=== PATIENT | male | born 1985 | race Caucasian/White ===

== ENCOUNTER 2022-05-22 11:23 | Inpatient (IN) | payer SELFPAY ==
[2022-05-22] VITALS (9 sets, daily range): BP systolic 101–122; BP diastolic 52–67
[~2022-05-22] VITALS: Ht 175.3 cm; Wt 65.8 kg
[2022-05-22] MEDS ORDERED: LORAZEPAM 2 MG/1 ML VIAL ONE ×3 (11:27→20:35)
[2022-05-22] MEDS ORDERED: DEXTROSE 50% 50 ML DISP.SYRIN ONE (11:34)
[2022-05-22] MEDS ORDERED: NALOXONE 2 MG/2 ML SYRINGE ONE ×2 (11:39→17:33)
[2022-05-22] MEDS ORDERED: NALOXONE HCL 0.4 MG/ML AMPUL IV ONE ×2 (12:00→18:30)
[2022-05-22] MEDS ORDERED: IV NORMAL SALINE 500 ML BAG IV ONE (12:00)
[2022-05-22] MEDS ORDERED: LORAZEPAM 2 MG/1 ML VIAL IV ONE (12:00)
[2022-05-22 12:33] LABS: CARBON DIOXIDE 14 mmol/L (21-32); CHLORIDE 101 mmol/L (98-107); GLUCOSE 119 mg/dL (74-106); POTASSIUM 4.1 mmol/L (3.5-5.1); UREA NITROGEN, BLOOD 22 mg/dL (7-18)
[2022-05-22 12:34] LABS: ETHANOL 49 MG/DL (0-0); HEMATOCRIT 34.4 % (36.7-47.1); MEAN CORPUSCULAR HEMOGLOBIN 24.5 uug (23.8-33.4); MEAN CORPUSCULAR VOLUME 87.6 fL (73.0-96.2); PLATELET COUNT (AUTO) 270 K/uL (152-348)
[2022-05-22 12:42] LABS: ALANINE AMINOTRANSFERASE 206 U/L (16-63); ALKALINE PHOSPHATASE 220 U/L (50-136); ASPARTATE AMINOTRANSFERASE 414 U/L (15-37); BILIRUBIN,DIRECT 0.2 mg/dL (0.0-0.2); BILIRUBIN,TOTAL 0.4 mg/dL (0.2-1.0); TOTAL PROTEIN, SERUM 7.5 g/dL (6.4-8.2)
[2022-05-22 12:46] LABS: THYROID STIMULATING HORMONE 4.102 mIU/mL (0.358-3.740)
[2022-05-22 13:10] LABS: ACETAMINOPHEN < 2.0 ug/mL (10-30)
[2022-05-22 13:34] LABS: BAND % (MANUAL) 5 % (0-10); LYMPHOCYTES % (MANUAL) 11 % (20-40); MONOCYTES % (MANUAL) 3 % (2-10); NEUTROPHILS % (MANUAL) 81 % (42-75)
[2022-05-22] MEDS ORDERED: IV NS 1000 ML 1,000 ML IV ONE (14:00)
--- NOTE | 2022-05-22 16:50 | NUR ---
Handsoff report given to CUSTOM DECORATING CONSULTANT Ashutosh Galvez.
--- NOTE | 2022-05-22 16:57 | NUR ---
Pt just transferred to ICU (ER room 1). Pt makes a snorting/choking sound and then moans with about every breath. Resp Rate is falling, now down to about 7/min.
[2022-05-22 16:59] LABS: *BILIRUBIN,URIN NEGATIVE (NEGATIVE); *BLOOD, URINE 3+ (NEGATIVE); *CLARITY,URINE CLEAR (CLEAR); *COLOR,URINE YELLOW (YELLOW); *KETONES,URINE NEGATIVE (NEGATIVE); *UROBILINOGEN,URINE 0.2 E.U./dl (NORMAL); LEUKOCYTE ESTERASE ,URINE NEGATIVE (NEGATIVE); NITRITE, URINE NEGATIVE (NEGATIVE); PH,URINE 5.5 (5.0-8.0); UGLUCOSE NEGATIVE (NEGATIVE)
[2022-05-22] MEDS ORDERED: ONDANSETRON 4 MG/2 ML VIAL IV PRN (17:00)
[2022-05-22] MEDS ORDERED: REMEDY ESSENTIAL ZINC PASTE 113 GM TP PRN (17:00)
[2022-05-22] MEDS ORDERED: LORAZEPAM 2 MG/1 ML VIAL IV PRN (17:00)
[2022-05-22] MEDS ORDERED: ACETAMINOPHEN 650 MG SUPP.RECT RC PRN (17:00)
[2022-05-22 17:13] LABS: MetHb 0.5 % (0.0-1.5)
[2022-05-22 17:15] LABS: *AMPHETAMINE, URINE POSITIVE (NEGATIVE); *CANNABINOID, URINE POSITIVE (NEGATIVE); *COCCAINE, URINE NEGATIVE (NEGATIVE); *OPIATE, URINE NEGATIVE (NEGATIVE); *PHENCYCLIDINE SCREEN,URINE NEGATIVE (NEGATIVE)
[2022-05-22 17:16] LABS: BACTERIA,URINE FEW /HPF (NONE SEEN); SQUAMOUS EPITHELIAL CELL,UR FEW /HPF (NONE SEEN); WBC,URINE NONE SEEN /HPF (0-3)
[2022-05-22 17:17] LABS: URINE AMORPHOUS URATE MODERATE /HPF
[2022-05-22] MEDS ORDERED: PIPERACILLIN/TAZOBACTAM/D5W 50 ML IV ONE (17:20)
[2022-05-22 17:27] LABS: CREATININE 2.4 mg/dL (0.6-1.3); POTASSIUM 5.6 mmol/L (3.5-5.1)
[2022-05-22] MEDS: IV LACTATED RINGERS SOLUTION 1,000 ML IV PRN ×2 (17:49→20:25)
[2022-05-22] MEDS ORDERED: KETAMINE HCL 500 MG/10 ML INJ ONE (17:57)
[2022-05-22] MEDS ORDERED: NOREPINEPHRINE BITARTRATE 8 MG in IV NORMAL SALINE 242 ML IV PRN (18:00)
[2022-05-22] MEDS ORDERED: KETAMINE HCL 500 MG/10 ML INJ IV ONE (18:00)
[2022-05-22] MEDS: NALOXONE HCL 4 MG in IV NORMAL SALINE 246 ML IV PRN (18:10)
[2022-05-22] MEDS: levETIRAcetam IV 500 MG in IV DEXTROSE 5% 100 ML IV SCH (18:20)
[2022-05-22] MEDS: PIPERACILLIN SODIUM/TAZOBACTAM 3.375 G in IV DEXTROSE 5% 100 ML IV SCH (19:00)
[2022-05-22 19:08] LABS: ABG BASE EXCESS -7.8 mmol/L; ABG HCO3 19.2 mmol/L; ABG PCO2 45.3 mmHg (35.0-45.0); ABG PH 7.244 (7.350-7.450); ABG PO2 60.1 mmHg (75.0-100.0); ABG SITE LEFT RADIAL; ABG TOTAL HEMOGLOBIN 10.4 G/dL (13.5-18.0); COHb 0.3 % (0.5-1.5); O2Hb 87.8 % (94.0-97.0); VENT MODE BIPAP
[2022-05-22] MEDS: LORAZEPAM 2 MG/1 ML VIAL IV SCH (20:30)
[2022-05-22] MEDS ORDERED: PIPERACILLIN SODIUM/TAZOBACTAM 3.375 G in IV DEXTROSE 5% 50 ML IV SCH (22:00)
[2022-05-23] VITALS (21 sets, daily range): BP systolic 99–146; BP diastolic 58–95
[2022-05-23] MEDS ORDERED: NALOXONE 2 MG/2 ML SYRINGE ONE (00:49)
[2022-05-23] MEDS ORDERED: HEPARIN SODIUM,PORCINE 5,000 UNITS/ML VIAL IV SCH (01:30)
[2022-05-23] MEDS ORDERED: HEPARIN/D5W 25000 UNITS/500 ML BAG IV ONE (01:30)
[2022-05-23] MEDS ORDERED: HEPARIN/D5W DRIP 500 ML ONE (01:32)
[2022-05-23] MEDS ORDERED: HEPARIN SODIUM,PORCINE 5,000 UNITS/ML VIAL ONE (01:32)
[2022-05-23] MEDS: LORAZEPAM 2 MG/1 ML VIAL IV SCH ×2 (02:00→06:00)
[2022-05-23] MEDS ORDERED: LORAZEPAM 2 MG/1 ML VIAL ONE ×5 (02:28→20:40)
[2022-05-23] MEDS ORDERED: PIPERACILLIN/TAZOBACTAM/D5W 50 ML IV ONE (02:37)
[2022-05-23] MEDS: PIPERACILLIN SODIUM/TAZOBACTAM 3.375 G in IV DEXTROSE 5% 100 ML IV SCH ×3 (02:46→17:36)
[2022-05-23] MEDS: NALOXONE HCL 4 MG in IV NORMAL SALINE 246 ML IV PRN ×2 (02:49→08:21)
[2022-05-23 05:03] LABS: HEMATOCRIT 29.3 % (36.7-47.1); MEAN CORPUSCULAR HEMOGLOBIN 25.3 uug (23.8-33.4); MEAN CORPUSCULAR VOLUME 80.1 fL (73.0-96.2); PLATELET COUNT (AUTO) 199 K/uL (152-348)
[2022-05-23 05:30] LABS: BILIRUBIN,TOTAL 0.7 mg/dL (0.2-1.0); CREATININE 2.6 mg/dL (0.6-1.3); MAGNESIUM 1.4 mg/dL (1.8-2.4); PHOSPHOROUS 5.5 mg/dL (2.5-4.9); POTASSIUM 3.9 mmol/L (3.5-5.1); THYROID STIMULATING HORMONE 0.379 mIU/mL (0.358-3.740); TOTAL PROTEIN, SERUM 6.2 g/dL (6.4-8.2)
[2022-05-23] MEDS: levETIRAcetam IV 500 MG in IV DEXTROSE 5% 100 ML IV SCH ×2 (06:00→17:08)
[2022-05-23 06:05] LABS: ABG BASE EXCESS -5.4 mmol/L; ABG HCO3 19.2 mmol/L; ABG PCO2 33.9 mmHg (35.0-45.0); ABG PO2 58.9 mmHg (75.0-100.0); ABG SITE RIGHT RADIAL; ABG TOTAL HEMOGLOBIN 10.1 G/dL (13.5-18.0); MetHb 0.1 % (0.0-1.5); O2Hb 89.8 % (94.0-97.0); VENT MODE room air
--- NOTE | 2022-05-23 07:15 | NUR ---
Received pt. restless combative agitated and on 4 point hard restrains on. On sinus tachycardia. IV line out and patient wet with blood all over the mahsa. Iv line leaking on the floor. IV G20 To RUE also leaking. IV pumps with alarms on. Diaper and patient wet from head to toe. Patient got situated in bed morning care provided and Iv line reinserted. Patient remains combative will continue to monitor.
--- NOTE | 2022-05-23 08:00 | NUR ---
Embedder in the unit and after examining pt. orders to stop heparing drip received.
[2022-05-23] MEDS: PANTOPRAZOLE SODIUM 40 MG VIAL IV SCH (09:00)
[2022-05-23] MEDS: MAGNESIUM SULFATE/D5W 100 ML IV SCH ×2 (09:30→13:44)
[2022-05-23] MEDS ORDERED: PANTOPRAZOLE SODIUM 40 MG VIAL ONE (10:23)
[2022-05-23] MEDS ORDERED: MAGNESIUM SULFATE/D5W 200 ML ONE (10:24)
[2022-05-23] MEDS ORDERED: CHLORDIAZEPOXIDE HCL 25 MG CAPSULE PO ONE (11:00)
[2022-05-23] MEDS ORDERED: CHLORDIAZEPOXIDE HCL 25 MG CAPSULE ONE ×2 (11:07→18:50)
[2022-05-23] MEDS ORDERED: HALOPERIDOL LACTATE 5 MG/1 ML VIAL IM ONE (11:15)
--- NOTE | 2022-05-23 11:15 | NUR ---
Patient remains severely restless and agitated and removed his 4th IV insertion. Attending notified that pt. now is with no IV access. and able to drink and swallow pills received his first dose of librium and remains restless agitated requesting to have a bear. Orders for 1:1 received when attending personally assess and witness pt. being combative and agitated.
[2022-05-23] MEDS ORDERED: HALOPERIDOL LACTATE 5 MG/1 ML VIAL ONE ×2 (11:22→20:40)
[2022-05-23] MEDS: CHLORDIAZEPOXIDE HCL 25 MG CAPSULE PO SCH ×2 (13:00→17:00)
[2022-05-23] MEDS: FERROUS SULFATE 325 MG TABEC PO SCH ×2 (13:00→21:00)
--- NOTE | 2022-05-23 13:00 | NUR ---
Attending Ernie Mike in the unit and inserted a ML. Patient remains restless agitated.
[2022-05-23] MEDS ORDERED: diphenhydrAMINE 50 MG/1 ML VIAL ONE (13:04)
[2022-05-23] MEDS ORDERED: diphenhydrAMINE 50 MG/1 ML VIAL IV PRN (13:15)
[2022-05-23] MEDS: IV LACTATED RINGERS SOLUTION 1,000 ML IV PRN (13:41)
--- NOTE | 2022-05-23 17:44 | NUR ---
Librium not administered pt. remains sleeping.
--- NOTE | 2022-05-23 17:53 | NUR ---
Left pt. sleeping comfortably saturation of 98%. NC on 4 liters with saturation of 98%. patient on diaper. On pvc monitor HR of 103 sinus tachycardia. sbp within desired limits. Addendum: 05/23/22 at 1757 by VIDHI COTA RN ML to FAYE wrapped with coban.
--- NOTE | 2022-05-23 18:19 | NUR ---
Left patient resting sound sleeping, on school bus monitor Sinus tachycardia low 100's SBP within desired limits. ML to FAYE patent. diaper on. Will endorse for continuity of care.
[2022-05-23] MEDS: LORAZEPAM 2 MG/1 ML VIAL IV PRN (18:52)
[2022-05-23] MEDS: HALOPERIDOL LACTATE 5 MG/1 ML VIAL IM PRN (20:53)
[2022-05-24] VITALS (19 sets, daily range): BP systolic 101–151; BP diastolic 67–116
[2022-05-24] MEDS ORDERED: LORAZEPAM 2 MG/1 ML VIAL ONE ×3 (00:32→19:22)
[2022-05-24] MEDS: PIPERACILLIN SODIUM/TAZOBACTAM 3.375 G in IV DEXTROSE 5% 100 ML IV SCH ×3 (02:22→17:38)
[2022-05-24 05:13] LABS: HEMATOCRIT 29.3 % (36.7-47.1); MEAN CORPUSCULAR VOLUME 79.6 fL (73.0-96.2); PLATELET COUNT (AUTO) 198 K/uL (152-348)
[2022-05-24 05:29] LABS: BILIRUBIN,DIRECT 0.3 mg/dL (0.0-0.2); BILIRUBIN,TOTAL 0.7 mg/dL (0.2-1.0); CREATININE 2.4 mg/dL (0.6-1.3); MAGNESIUM 2.1 mg/dL (1.8-2.4); PHOSPHOROUS 2.5 mg/dL (2.5-4.9); POTASSIUM 4.2 mmol/L (3.5-5.1); TOTAL PROTEIN, SERUM 6.7 g/dL (6.4-8.2)
[2022-05-24] MEDS: levETIRAcetam IV 500 MG in IV DEXTROSE 5% 100 ML IV SCH ×2 (06:03→17:38)
[2022-05-24] MEDS ORDERED: HALOPERIDOL LACTATE 5 MG/1 ML VIAL ONE ×3 (06:06→19:54)
[2022-05-24 06:28] LABS: ABG BASE EXCESS -2.3 mmol/L; ABG HCO3 22.2 mmol/L; ABG PCO2 36.9 mmHg (35.0-45.0); ABG PH 7.397 (7.350-7.450); ABG PO2 56.7 mmHg (75.0-100.0); ABG SITE LEFT RADIAL; ABG TOTAL HEMOGLOBIN 9.9 G/dL (13.5-18.0); COHb 0.2 % (0.5-1.5); MetHb 0.3 % (0.0-1.5); O2Hb 88.4 % (94.0-97.0); VENT MODE room air
[2022-05-24] MEDS: HALOPERIDOL LACTATE 5 MG/1 ML VIAL IM PRN ×2 (07:02→20:05)
[2022-05-24] MEDS: LORAZEPAM 2 MG/1 ML VIAL IV PRN ×2 (07:09→19:23)
--- NOTE | 2022-05-24 07:15 | NUR ---
Received pt. sleeping intermittently, when awake pt. combative attempting to get out of bed unsupervised. On cardiac monitoring ST low 100's. Nasal canula 4liters. will continue to monitor.
--- NOTE | 2022-05-24 08:00 | NUR ---
Dr. Payton in the unit to follow up on pt. report given orders to continue with care plan received.
[2022-05-24] MEDS ORDERED: CHLORDIAZEPOXIDE HCL 25 MG CAPSULE ONE ×3 (08:09→16:18)
[2022-05-24] MEDS ORDERED: PANTOPRAZOLE SODIUM 40 MG VIAL ONE (08:09)
[2022-05-24] MEDS: PANTOPRAZOLE SODIUM 40 MG VIAL IV SCH (08:19)
[2022-05-24] MEDS: FERROUS SULFATE 325 MG TABEC PO SCH (08:22)
--- NOTE | 2022-05-24 08:30 | NUR ---
Cardiology services, Dr. Hess in the unit to see and examine pt.
[2022-05-24] MEDS: CHLORDIAZEPOXIDE HCL 25 MG CAPSULE PO SCH ×3 (09:50→16:24)
--- NOTE | 2022-05-24 17:02 | NUR ---
certified pharmacy tech in the unit and patient was uncooperative restless agitated and procedure was suspended. pt. not following commands.
[2022-05-24] MEDS ORDERED: HALOPERIDOL LACTATE 5 MG/1 ML VIAL IV ONE (17:15)
--- NOTE | 2022-05-24 18:50 | NUR ---
Attending physician Dr. Ronald Walter in the unit to see and examine pt. report given orders to received. and implemented.
[2022-05-24] MEDS ORDERED: LEVALBUTEROL HCL NEB 0.63 MG/3 ML NEBU NEB PRN (19:15)
[2022-05-24] MEDS ORDERED: ALBUTEROL SULFATE 2.5 MG/3 ML NEBU NEB PRN (19:15)
[2022-05-24] MEDS ORDERED: LORAZEPAM 2 MG/1 ML VIAL IV PRN (19:15)
[2022-05-24] MEDS ORDERED: diphenhydrAMINE 50 MG/1 ML VIAL ONE (20:21)
[2022-05-24] MEDS: HALOPERIDOL LACTATE 5 MG/1 ML VIAL IM ONE (20:30)
[2022-05-24] MEDS ORDERED: diphenhydrAMINE 50 MG/1 ML VIAL IV ONE (20:30)
--- NOTE | 2022-05-24 20:30 | NUR ---
Patient remains combative, restless, agitated getting out of bed unsupervised unsteady gait. Attending notified and orders received and implemented.
[2022-05-25 00:09] VITALS: BP 143/99
[2022-05-25] MEDS: PIPERACILLIN SODIUM/TAZOBACTAM 3.375 G in IV DEXTROSE 5% 100 ML IV SCH ×3 (02:50→17:17)
[2022-05-25 04:00] VITALS: BP 132/75
[2022-05-25] MEDS ORDERED: HALOPERIDOL LACTATE 5 MG/1 ML VIAL ONE (04:44)
[2022-05-25] MEDS: levETIRAcetam IV 500 MG in IV DEXTROSE 5% 100 ML IV SCH ×2 (05:06→17:17)
--- NOTE | 2022-05-25 06:33 | NUR ---
Telephone report will be given to incoming shift. Patient restless agitated combative intermittently. ON NSR ST when agitated in the low 10's. Afebrile for the shift. RUM with about 1 inch back. MARY G18 patent. Patient using diaper and at this time patient placed on mittens for protection 1:1 sitter at bedside.
[2022-05-25] MEDS: PANTOPRAZOLE SODIUM 40 MG TABLET.DR PO SCH (07:00)
[2022-05-25 08:27] LABS: HEMATOCRIT 26.7 % (36.7-47.1); MEAN CORPUSCULAR HEMOGLOBIN 25.2 uug (23.8-33.4); MEAN CORPUSCULAR VOLUME 77.9 fL (73.0-96.2); PLATELET COUNT (AUTO) 207 K/uL (152-348)
[2022-05-25] MEDS: HALOPERIDOL LACTATE 5 MG/1 ML VIAL IM PRN ×2 (08:35→15:10)
[2022-05-25 08:51] LABS: CREATININE 1.6 mg/dL (0.6-1.3); MAGNESIUM 1.8 mg/dL (1.8-2.4); PHOSPHOROUS 2.1 mg/dL (2.5-4.9); POTASSIUM 3.2 mmol/L (3.5-5.1)
[2022-05-25] MEDS: LORAZEPAM 2 MG/1 ML VIAL IV PRN ×2 (09:31→20:55)
[2022-05-25] MEDS ORDERED: POTASSIUM PHOSPHATE MM 15 MMOL in IV NORMAL SALINE 250 ML IV ONE (11:00)
[2022-05-25 12:00] VITALS: BP 137/81
--- NOTE | 2022-05-25 15:14 | NUR ---
SW consult was requested for a patient on medsurg for homeless and substance abuse resources. Patient is a 36-year-old male admitted to the hospital for an overdose of amphetamines. The toxicology report is positive for amphetamines and cannabinoids. Patient appears disoriented and lethargic. Patient was unable to answer assessment questions. SW attempted to give the patient homeless resources to local shelters for [facility] [place] [address] [place] [address] ([phone]), [facility] [place] [facility] [address] [facility] [address] ([phone]) and [facility] [address] [facility] [address] and substance abuse resources for [facility] [address] [facility] [address] ([phone]), [facility] [address] [facility] [address] ([phone]), and [facility] [address] [facility] [address] ([phone]). SW will follow up with patient tomorrow.
[2022-05-25 16:00] VITALS: BP 154/86
--- NOTE | 2022-05-25 18:23 | NUR ---
Patient showing signs of agitation and aggressiveness during shift, relieved with medicinal interventions. Patient 1:[address] HEAD SULFIDE OPERATOR at patient's bedside. IV site patent and intact. Bed left in lowest position with call light within reach. Will endorse information to PM nurse.
[2022-05-25 20:00] VITALS: BP 162/96
[2022-05-26] VITALS: BP 156/90
[2022-05-26] MEDS: PIPERACILLIN SODIUM/TAZOBACTAM 3.375 G in IV DEXTROSE 5% 100 ML IV SCH ×3 (02:21→17:28)
[2022-05-26 04:00] VITALS: BP 164/92
[2022-05-26] MEDS: levETIRAcetam IV 500 MG in IV DEXTROSE 5% 100 ML IV SCH (05:13)
[2022-05-26] MEDS: PANTOPRAZOLE SODIUM 40 MG TABLET.DR PO SCH (05:13)
[2022-05-26] MEDS: LORAZEPAM 2 MG/1 ML VIAL IV PRN ×4 (05:35→23:21)
[2022-05-26] MEDS: HALOPERIDOL LACTATE 5 MG/1 ML VIAL IM PRN ×3 (07:43→18:30)
[2022-05-26 08:56] LABS: HEMATOCRIT 28.8 % (36.7-47.1); MEAN CORPUSCULAR VOLUME 78.7 fL (73.0-96.2); PLATELET COUNT (AUTO) 269 K/uL (152-348)
[2022-05-26 09:17] LABS: BILIRUBIN,TOTAL 0.7 mg/dL (0.2-1.0); CREATININE 1.6 mg/dL (0.6-1.3); MAGNESIUM 1.4 mg/dL (1.8-2.4); PHOSPHOROUS 3.5 mg/dL (2.5-4.9); POTASSIUM 3.3 mmol/L (3.5-5.1); TOTAL PROTEIN, SERUM 6.8 g/dL (6.4-8.2)
--- NOTE | 2022-05-26 15:30 | NUR ---
SW consult was requested to follow up with patient on medsur for homeless and substance abuse resources. Patient is a 36-year-old male admitted to the hospital for an overdose of amphetamines. The toxicology report is positive for amphetamines and cannabinoids. Patient continues to appear disoriented and lethargic. Patient still is unable to answer assessment questions. SW gave the patient homeless resources to local shelters for [facility] [place] [address] [place] [address] ([phone]), [facility] [place] [facility] [address] [facility] [address] ([phone]) and [facility] [address] [facility] [address] and substance abuse resources for [facility] [address] [facility] [address] ([phone]), [facility] [address] [facility] [address] ([phone]), and [facility] [address] [facility] [address] ([phone]). SW will continue to follow up with patient.
[2022-05-26 16:26] VITALS: BP 158/79
[2022-05-26] MEDS: levETIRAcetam 500 MG TABLET PO SCH (17:20)
--- NOTE | 2022-05-26 18:30 | NUR ---
Patient agitated majority of shift until new doctor orders. Haldol given IM twice during shift to help prevent escalation of patient's aggression and hostility. Patient 1:1 tolerating meals and fluids during shift. IV site patent and intact. Bed left in lowest position with call light within reach. Comfort measures provided. Will endorse information to PM nurse.
--- NOTE | 2022-05-26 19:30 | NUR ---
Received patient lying in bed. AAOx2-3 with periods of confusion. In no apparent distress. No signs or symptoms of pain or SOB. [address] for safety[address] Circulation checked on all extremities. Midline on right upper arm intact and patent. 1:1 sitter on site. Needs assessed and attended to. Continue to monitor.
[2022-05-26 21:17] VITALS: BP 144/87
[2022-05-27] MEDS: HALOPERIDOL LACTATE 5 MG/1 ML VIAL IM PRN ×3 (01:12→22:31)
[2022-05-27] MEDS: PIPERACILLIN SODIUM/TAZOBACTAM 3.375 G in IV DEXTROSE 5% 100 ML IV SCH ×3 (01:12→17:05)
[2022-05-27 05:31] VITALS: BP 105/55
[2022-05-27] MEDS: LORAZEPAM 2 MG/1 ML VIAL IV PRN ×2 (05:31→12:11)
[2022-05-27] MEDS: PANTOPRAZOLE SODIUM 40 MG TABLET.DR PO SCH (06:01)
[2022-05-27] MEDS: levETIRAcetam 500 MG TABLET PO SCH ×2 (06:01→17:05)
[2022-05-27 06:55] LABS: HEMATOCRIT 30.4 % (36.7-47.1); MEAN CORPUSCULAR HEMOGLOBIN 25.1 uug (23.8-33.4); MEAN CORPUSCULAR VOLUME 77.4 fL (73.0-96.2); PLATELET COUNT (AUTO) 320 K/uL (152-348)
[2022-05-27 07:09] LABS: CREATININE 1.5 mg/dL (0.6-1.3); MAGNESIUM 1.5 mg/dL (1.8-2.4); PHOSPHOROUS 4.2 mg/dL (2.5-4.9); POTASSIUM 3.6 mmol/L (3.5-5.1)
[2022-05-27] MEDS ORDERED: ALBUTEROL SULFATE 1.25 MG/3 ML NEBU NEB PRN (07:15)
[2022-05-27 07:37] LABS: BAND % (MANUAL) 1 % (0-10); EOSINOPHILS % (MANUAL) 4 % (0-8); LYMPHOCYTES % (MANUAL) 25 % (20-40); MONOCYTES % (MANUAL) 17 % (2-10); NEUTROPHILS % (MANUAL) 53 % (42-75)
[2022-05-27] MEDS ORDERED: MAGNESIUM SULFATE/D5W 100 ML IV SCH ×2 (08:00→08:30)
[2022-05-27] MEDS: CHLORDIAZEPOXIDE HCL 25 MG CAPSULE PO SCH ×3 (14:08→21:39)
--- NOTE | 2022-05-27 18:39 | NUR ---
Psyche consultation completed for patient, with new orders for medication given. Patient still noncompliant and rude towards staff. IV site patent and intact. Bed left in lowest position with call light within reach. Will endorse information to PM nurse.
--- NOTE | 2022-05-27 19:20 | NUR ---
Patient in bed awake but still confused, no sob no chest pain, on soft wrist restraints due to pulling out iv lines, medical lines, patient tries to get out of bed, risk for fall and injury. on 1;1 sitter for safety, patient has multiple episode of agitation, climbs out of bed, cont to monitor.
[2022-05-27 20:00] VITALS: BP 144/94
--- NOTE | 2022-05-27 22:30 | NUR ---
Patient pulled out his midline, will try to insert peripheral one.
[2022-05-28] VITALS: BP_SYST 118; BP_SYST 129; BP_DIAS 72; BP_DIAS 78
--- NOTE | 2022-05-28 00:04 | NUR ---
Patient inserted iv line on left upper arms, tolerate well, cont on 1;1 sitter for safety, cont to monitor.
[2022-05-28] MEDS: PIPERACILLIN SODIUM/TAZOBACTAM 3.375 G in IV DEXTROSE 5% 100 ML IV SCH ×2 (01:36→09:43)
[2022-05-28] MEDS: PANTOPRAZOLE SODIUM 40 MG TABLET.DR PO SCH (05:48)
[2022-05-28] MEDS: levETIRAcetam 500 MG TABLET PO SCH ×2 (05:48→18:16)
[2022-05-28 06:50] VITALS: BP 138/68
--- NOTE | 2022-05-28 06:55 | NUR ---
Patient awake able to make some needs know, episode of tries to climb out of bed, risk for fall and injury, cont to have 1;1 sitter for safety, patient unstead and risk for fall and injury. Given prn earlier on the shift with some help cont to monitor.
[2022-05-28 07:33] LABS: HEMATOCRIT 31.8 % (36.7-47.1); MEAN CORPUSCULAR VOLUME 77.8 fL (73.0-96.2); PLATELET COUNT (AUTO) 368 K/uL (152-348)
[2022-05-28 07:42] LABS: NEUTROPHILS % (MANUAL) 0 % (42-75)
[2022-05-28 07:44] LABS: BILIRUBIN,DIRECT 0.1 mg/dL (0.0-0.2); BILIRUBIN,TOTAL 0.5 mg/dL (0.2-1.0); CREATININE 1.5 mg/dL (0.6-1.3); MAGNESIUM 1.7 mg/dL (1.8-2.4); PHOSPHOROUS 4.6 mg/dL (2.5-4.9); POTASSIUM 3.8 mmol/L (3.5-5.1); TOTAL PROTEIN, SERUM 7.2 g/dL (6.4-8.2)
[2022-05-28] MEDS ORDERED: MAGNESIUM SULFATE/D5W 100 ML IV SCH (09:15)
[2022-05-28] MEDS: CHLORDIAZEPOXIDE HCL 25 MG CAPSULE PO SCH ×4 (09:40→20:00)
[2022-05-28] MEDS ORDERED: MAGNESIUM OXIDE 400 MG TABLET PO ONE (10:00)
--- NOTE | 2022-05-28 12:00 | NUR ---
pt non-compliance. aggressive and agitated. want to get out. pull out his iv access. md notified.
[2022-05-28] MEDS: ACETAMINOPHEN 325 MG TABLET PO PRN (19:57)
[2022-05-28] MEDS: HALOPERIDOL LACTATE 5 MG/1 ML VIAL IM PRN (22:32)
--- NOTE | 2022-05-28 22:59 | NUR ---
Patient sleep intermittently, on 1;1 sitter for safety, multiple episode of anxiety mb restlessnes/agitation. Patient restless in bed, likes to sleep on the floor, states that there something on his bed, unclear what patient meant. Patient hand mittents and soft wrist restraint are off because its helps patient to calm down. Patient asked for medication to calm him, given Haldol IM as ordered. Patient asked for pudding and crackers, offered cold water to drink assist to the toilet for bladder eliminations. cont to monitor.
[2022-05-29] MEDS: PANTOPRAZOLE SODIUM 40 MG TABLET.DR PO SCH (05:48)
[2022-05-29] MEDS: levETIRAcetam 500 MG TABLET PO SCH (05:48)
[2022-05-29 07:30] VITALS: BP 109/70
[2022-05-29 07:36] LABS: CREATININE 1.4 mg/dL (0.6-1.3); MAGNESIUM 1.7 mg/dL (1.8-2.4); POTASSIUM 4.3 mmol/L (3.5-5.1)
[2022-05-29] MEDS: CHLORDIAZEPOXIDE HCL 25 MG CAPSULE PO SCH ×2 (08:19→12:33)
[2022-05-29] MEDS ORDERED: MAGNESIUM OXIDE 400 MG TABLET PO ONE (11:00)
--- NOTE | 2022-05-29 11:16 | NUR ---
pt is cleared for discharge. spoke with dialysis social worker regarding discharging homeless pt.
[2022-05-29 12:00] VITALS: BP 118/70
[2022-05-29] MEDS: ACETAMINOPHEN 325 MG TABLET PO PRN (12:33)
[2022-05-29] MEDS ORDERED: ENSURE ENLIVE (VAN) 240 ML LIQUID PO SCH (13:00)
--- NOTE | 2022-05-29 13:17 | NUR ---
homeless waiver form signed by the pt. educate pt regarding resources available. pt verbalized understanding. pt will arranged his own living arrangement.
--- NOTE | 2022-05-29 14:20 | NUR ---
pt left the hospital. all belpongings accounted for. homeless resources was given to the pt. bus pass/token and snacks was given to prior dc.
== END 2022-05-29 14:25 | disposition home or self-care (01) | DRG 917 ==
LOC: ER 11:27 → EDBD 16:26 → TRANSITION 16:26 → TELE3 05-25 07:57 → MEDSURG3 05-26 08:07
PROVIDERS: ADMIT Nurse Practitioner Family; ATTEND Internal Medicine
PROC: 05H533Z Insertion of Infusion Device into Right Subclavian Vein, Percutaneous Approach (ICD-10-PCS; principal; 2022-05-23)
PROC: B546ZZA Ultrasonography of Right Subclavian Vein, Guidance (ICD-10-PCS; 2022-05-23)
DX: T43.651A Poisoning by methamphetamines accidental (unintentional), initial encounter (principal); A41.9 Sepsis, unspecified organism; G92.8 Other toxic encephalopathy; J96.01 Acute respiratory failure with hypoxia; J69.0 Pneumonitis due to inhalation of food and vomit; N17.0 Acute kidney failure with tubular necrosis; I21.A1 Myocardial infarction type 2; J96.02 Acute respiratory failure with hypercapnia; K72.00 Acute and subacute hepatic failure without coma; E44.0 Moderate protein-calorie malnutrition; E87.20 Acidosis, unspecified; M62.82 Rhabdomyolysis; F10.239 Alcohol dependence with withdrawal, unspecified; F11.13 Opioid abuse with withdrawal; T40.601A Poisoning by unspecified narcotics, accidental (unintentional), initial encounter; Y92.89 Other specified places as the place of occurrence of the external cause; R73.9 Hyperglycemia, unspecified; D64.9 Anemia, unspecified; E83.42 Hypomagnesemia; R56.9 Unspecified convulsions; R62.7 Adult failure to thrive; Z59.00 Homelessness unspecified; Z87.442 Personal history of urinary calculi; K70.10 Alcoholic hepatitis without ascites; R74.01 Elevation of levels of liver transaminase levels; T40.711A Poisoning by cannabis, accidental (unintentional), initial encounter; E86.0 Dehydration; Z68.21 Body mass index [BMI] 21.0-21.9, adult
CPT/HCPCS: 36415; 36600; 70030-TC; 70450; 71045; 72125; 76770; 83550; 83605; 83735; 84100; 84443; 84484; 85025; 85730; 86140; 87040; 93005; 93307; 94660; A4663; C1758; C9113; G0378; G0480; J1200; J1630; J1644; J1953; J2060; J2310; J2543; J3475; J3490; J7040; J7120